=== PATIENT | female | born 2000 | race Hispanic/Latino ===

== ENCOUNTER → 2022-08-03 | Day surgery (SDC) | payer BC ==
[~2022-08-03] MED LIST: CEPHALEXIN500 MG PO; DICYCLOMINE HCL20 MG PO; FAMOTIDINE20 MG PO; FENTANYL CITRATE/PF 100MCG/2 ML INJ ONE; LIDOCAINE HCL 2% LOCAL INJ 5 ML SDV VIAL INJ ONE; METOCLOPRAMIDE HCL 10 MG/2ML VIAL ONE; MIDAZOLAM HCL 2 MG/2 ML VIAL ONE; OMEPRAZOLE40 MG PO; POVIDONE IODINE 0.05% 0.05 % ML PO ONE; PROMETHAZINE HC25 M1 PO; PROPOFOL IV EMULSION 10 MG/ML 20 ML VIAL ONE; SUCRALFATE1 GM PO; TYLENOL325 MG PO; XYZAL5 MG PO
[2022-08-03 11:15] VITALS: BP 123/88
== END | disposition home or self-care (01) ==
LOC: OR 07:52
PROVIDERS: ATTEND Internal Medicine Gastroenterology
DX: K29.70 Gastritis, unspecified, without bleeding (principal); K20.90 Esophagitis, unspecified without bleeding; K21.9 Gastro-esophageal reflux disease without esophagitis; R19.7 Diarrhea, unspecified; Z71.3 Dietary counseling and surveillance; E28.2 Polycystic ovarian syndrome; Z68.34 Body mass index [BMI] 34.0-34.9, adult; Z86.16 Personal history of COVID-19
CPT/HCPCS: 43239; 81025; C9113; J2001; J2250; J2704; J2765; J3010